=== PATIENT | male | born 1970 | race Caucasian/White ===

== ENCOUNTER 2017-02-27 19:41 | Emergency (ER) | payer SELFPAY ==
[2017-02-27 19:52] VITALS: BP 159/99
[2017-02-27] MEDS ORDERED: HYDROCODONE/APAP 5/325MG TABLET. PO ONE (20:00)
[2017-02-27] MEDS ORDERED: HYDR-971 PO (20:08)
[2017-02-27] MEDS ORDERED: AMOX500C PO (20:08)
--- NOTE | 2017-02-27 20:08 | PHYS DOC ---
Past Medical History Past Medical History: No Pertinent History Past Surgical History: No Surgical History Alcohol Use: None Drug Use: None Adult General Chief Complaint Chief Complaint: TOOTH ACHE OR PAIN [facility] Patient is a 46 year old L presents to the emergency department stating that he has having right lower dental pain and discomfort. He states that he was eating cheese and crackers tonight when he felt a tooth crack brake. He states that his symptoms pain all the way down into his back area. Patient states he became lightheaded and felt as though he is going to pass out. Patient states that he thinks he may have swallowed a part of the tooth. He denies any fever, chills or any nausea vomiting. He did state that he tried to contact his primary care dentist although was not able to get in today. Review of Systems Review of Systems Constitutional: Denies fever or chills [] Eyes: Denies change in visual acuity, redness, or eye pain [] HENT: Denies nasal congestion or sore throat. Dental pain and discomfort Respiratory: Denies cough or shortness of breath [] Cardiovascular: No additional information not addressed in HPI [] GI: Denies abdominal pain, nausea, vomiting, bloody stools or diarrhea [] : Denies dysuria or hematuria [] Musculoskeletal: Denies back pain or joint pain [] Integument: Denies rash or skin lesions [] Neurologic: Denies headache, focal weakness or sensory changes [] Allergies Allergies Allergies Coded Allergies Type Severity Reaction Last Updated Verified No Known Drug Allergies 02/27/17 No Physical Exam Physical Exam Constitutional: Well developed, well nourished, no acute distress, non-toxic appearance. [] HENT: Normocephalic, atraumatic, bilateral external ears normal, oropharynx moist, no oral exudates, nose normal. Lateral tympanic membrane appears to be normal. Tooth #32 appears to be broken off. The gumline in the back area appears to be red. Eyes: PERRLA, EOMI, conjunctiva normal, no discharge. [] Neck: Normal range of motion, no tenderness, supple, no stridor. [] Cardiovascular:Heart rate regular rhythm, no murmur [] Lungs & Thorax: Bilateral breath sounds clear to auscultation [] Skin: Warm, dry, no erythema, no rash. [] Back: No tenderness Extremities: No tenderness, no cyanosis, no clubbing, ROM intact, no edema. [] Neurologic: Alert and oriented X 3, normal motor function, normal sensory function, no focal deficits noted. [] Psychologic: Affect normal, judgement normal, mood normal. [] Current Patient Data Vital Signs Vital Signs Date Time Temp Pulse Resp B/P Pulse Ox O2 Delivery O2 Flow Rate FiO2 02/27/17 19:52 98.1 84 20 98 Room Air 98.1 EKG EKG [] Radiology/Procedures Radiology/Procedures [] Course & Med Decision Making Course & Med Decision Making Pertinent Labs and Imaging studies reviewed. (See chart for details) Patient will be provided with hydrocodone here in the emergency department. He' ll be discharged with a prescription for amoxicillin as well as hydrocodone he was instructed this medication will cause drowsiness do not take any be alert and oriented. Recommended him following up with the dentist tomorrow. Also recommended dental wax [id number] to cover the area to decrease pain and discomfort. Patient will be discharged home in stable condition signs symptoms to return back to emergency department as been provided. [] Dragon Disclaimer Dragon Disclaimer This electronic medical record was generated, in whole or in part, using a voice recognition dictation system. Departure Departure Impression: Primary Impression: Pain, dental Additional Impression: Fractured tooth Disposition: 01 HOME, SELF-CARE Condition: STABLE Patient Instructions: Tooth Fracture, Toothache-Brief Additional Instructions: Activity as tolerated Medication as prescribed Hamilton will cause drowsiness do not take if you need to be alert and oriented Ibuprofen 800 mg by mouth every 8 hours with food. Stop taking if you develop upset stomach You may also purchase dental wax over the counter and apply it to the tooth, this will help with pain and discomfort. Followup with dentist tomorrow. Return to emergency department as needed for signs and symptoms that become worse. Scripts Hydrocodone/Apap 5-325 (Hamilton 5-325 Tablet)1 Each Tablet1 Tab PO PRN Q6HRS PRN PAIN #15 TAB Prov:KAE BETANCOURT APRN 02/27/17 Amoxicillin 500 Mg Capsule1 Cap PO QID #40 CAP Prov:KAE BETANCOURT APRN 02/27/17 Problem Qualifiers KAE BETANCOURT APRN Feb 27, 2017 20:08
== END 2017-02-27 20:15 | disposition home or self-care (01) ==
LOC: ER 19:41
DX: S02.5XXA Fracture of tooth (traumatic), initial encounter for closed fracture (principal); R42 Dizziness and giddiness; X58.XXXA Exposure to other specified factors, initial encounter; Y93.89 Activity, other specified; Y92.89 Other specified places as the place of occurrence of the external cause; Y99.8 Other external cause status
CPT/HCPCS: 99283

== ENCOUNTER 2017-03-13 05:48 | Emergency (ER) | payer SELFPAY ==
[~2017-03-13] VITALS: Ht 190.5 cm; Wt 124.7 kg
[~2017-03-13 05:48] MED LIST: AMOX500C PO; HYDR-971 PO
[2017-03-13 05:55] VITALS: BP 156/96
[2017-03-13] MEDS ORDERED: IBUP-1060 PO (06:19)
[2017-03-13] MEDS ORDERED: CHLO15MO2 PO (06:19)
--- NOTE | 2017-03-13 06:28 | PHYS DOC ---
Past Medical History Past Medical History: No Pertinent History Past Surgical History: No Surgical History Alcohol Use: None Drug Use: None Adult General Chief Complaint Chief Complaint: DENTAL PROBLEM HPI HPI Patient is a 46 year old male who presents with reoccurring dental pain. Patient has been seen once prior for similar complaint. He had fractured his tooth while eating and has exposed nerve. He states that it hurts to with cold, heat, when. He was seen in late February and prescribed amoxicillin and instructed to follow-up with the dentist. He attempted to schedule a dental appointment but was unsuccessful and then his pain went away so he did not further make attempt. Today he woke up with excruciating pain. He did attempt an aspirin. He did not drive, no fevers. Review of Systems Review of Systems Constitutional: Denies fever or chills [] Eyes: Denies change in visual acuity, redness, or eye pain [] HENT: Denies nasal congestion or sore throat [] Respiratory: Denies cough or shortness of breath [] Cardiovascular: Denies chest pain GI: Denies abdominal pain, nausea, vomiting, bloody stools or diarrhea [] : Denies dysuria or hematuria [] Musculoskeletal: Denies back pain or joint pain [] Integument: Denies rash or skin lesions [] Neurologic: Denies headache, focal weakness or sensory changes [] Endocrine: Denies polyuria or polydipsia [] Current Medications Current Medications Current Medications Medications (Trade) Dose Ordered Sig/Cinthia Start Time Stop Time Status Last Admin Dose Admin Acetaminophen/ Hydrocodone Bitart (Lortab 5/325) 2 tab 1X ONCE 03/13/17 07:00 03/13/17 07:01 03/13/17 06:22 2 TAB Allergies Allergies Allergies Coded Allergies Type Severity Reaction Last Updated Verified No Known Drug Allergies 02/27/17 No Physical Exam Physical Exam Constitutional: Well developed, well nourished, no acute distress, non-toxic appearance. [] HENT: Normocephalic, atraumatic, bilateral external ears normal, oropharynx moist, no trismus, fractured tooth #31 on the posterior aspect without surrounding fluctuance or erythema Eyes: PERRLA, EOMI, conjunctiva normal, no discharge. [] Neck: Normal range of motion, no tenderness, supple, no stridor. [] Cardiovascular:Heart rate regular rhythm Lungs & Thorax: No respiratory distress Neurologic: Alert and oriented X 3, normal motor function, normal sensory function, no focal deficits noted. [] Psychologic: Affect normal, judgement normal, mood normal. [] Current Patient Data Vital Signs Vital Signs Date Time Temp Pulse Resp B/P (MAP) Pulse Ox O2 Delivery O2 Flow Rate FiO2 03/13/17 06:22 22 99 Room Air 03/13/17 05:55 98.5 84 98.5 EKG EKG [] Radiology/Procedures Radiology/Procedures [] Course & Med Decision Making Course & Med Decision Making Pertinent Labs and Imaging studies reviewed. (See chart for details) Patient was given 2 [place]met[place] tablets here. A full dental resource list was given, I counseled the patient that he will need to follow up where the tooth pain would continue. Patient was given ibuprofen prescription and Peridex. Return precautions given. Dragon Disclaimer Dragon Disclaimer This electronic medical record was generated, in whole or in part, using a voice recognition dictation system. Departure Departure Impression: Primary Impression: Fractured tooth Disposition: HOME, SELF-CARE Condition: STABLE Referrals: NO PCP (PCP) Patient Instructions: Dental Pain, [id number] Additional Instructions: It is imperative that you follow-up with a dentist to have definitive treatment of your dental fracture. Scripts Chlorhexidine Gluconate (PERIDEX) 15 Ml Mouthwash 15 ML PO BID, #473 ML Prov: FRANCI NY MD 03/13/17 Ibuprofen (IBUPROFEN) 800 Mg Tablet 800 MG PO PRN TID Y for PAIN, #20 TAB take with food or milk to avoid upsetting stomach Prov: FRANCI NY MD 03/13/17 FRANCI NY MD March 13, 2017 06:28
[2017-03-13] MEDS ORDERED: HYDROcodone/APAP 5/325MG 1 TAB TABLET PO ONE (07:00)
== END 2017-03-13 06:25 | disposition home or self-care (01) ==
LOC: ER 05:48
DX: S02.5XXA Fracture of tooth (traumatic), initial encounter for closed fracture (principal); X58.XXXA Exposure to other specified factors, initial encounter; Y93.89 Activity, other specified; Y92.89 Other specified places as the place of occurrence of the external cause; Y99.8 Other external cause status
CPT/HCPCS: 99282